=== PATIENT | male | born 1950 | race Caucasian/White ===

== ENCOUNTER 2023-11-14 08:14 | Outpatient (REF) | payer MEDICARE, OTHER, SELFPAY ==
[2023-11-14] VITALS (10 sets, daily range): BP systolic 80–136; BP diastolic 65–105
[2023-11-14 08:38] LABS: % Eosinophils 5.8 % (0-6); % Immature Granulocytes 0.2 % (0-0.5); % Lymphocytes 21.7 % (20.5-51.1); % Monocytes 9.9 % (1.7-9.3); % Neutrophils 61.4 % (42.2-75.2); Absolute Basophils 0.1 10^3/uL (0-0.2); Absolute Eosinophils 0.5 10^3/uL (0-0.7); Absolute Lymphocytes 1.8 10^3/uL (1.2-3.4); Absolute Monocytes 0.8 10^3/uL (0.1-0.6); Absolute Neutrophils 5.1 10^3/uL (1.4-6.5); Hematocrit 44.3 % (39.0-52.0); Hemoglobin 15.4 g/dL (13.0-18.0); Mean Corp Hgb Conc. 34.8 g/dL (33.0-37.0); Mean Corpuscular Volume 91.9 fL (80.0-94.0); Mean Platelet Volume 9.1 fL (7.4-10.4); Nucleated Red Blood Cells % 0 % (-); Platelet Count 258 10^3/uL (130-400); Red Blood Cell Count 4.82 10^6/uL (4.70-6.10); Red Cell Dist. Width 13.2 % (11.5-14.5); White Blood Cell Count 8.3 10^3/uL (4.8-10.8)
[2023-11-14 08:50] LABS: INR 1.03; PT 13.3 Sec (11.4-14.6)
[2023-11-14 08:52] LABS: Blood Urea Nitrogen 20 mg/dl (9-20); Calcium 9.2 mg/dl (8.4-10.2); Carbon Dioxide 24 mmol/L (22-30); Chloride 107 mmol/L (98-107); Glucose 111 mg/dl (70-99); Potassium 3.4 mmol/L (3.5-5.1); Sodium 138 mmol/L (135-145); eGFR 52.74
[2023-11-14] MEDS: CATAPRES 0.100000000000000006 MG PO (09:07)
== END 2023-11-14 12:25 | disposition home or self-care (01) ==
LOC: RADI 08:14
PROVIDERS: ATTENDING PHYSICIAN Urology
DX: C64.2 Malignant neoplasm of left kidney, except renal pelvis (principal); D68.8 Other specified coagulation defects
CPT/HCPCS: 88305; 36415; 50200; 76942; 80048; 85025; 85610; 88333; 88341; 88342; 99152; 99153

== ENCOUNTER 2024-01-05 06:27 | Inpatient (IN) | payer MEDICARE, OTHER, SELFPAY ==
[2023-12-28 14:03] VITALS: BMI 32.4
--- NOTE | 2023-12-30 16:21 | PTCARENOTE ---
K 3.4, ok if stable per Dr. Peters.
[2024-01-05] VITALS (14 sets, daily range): BP systolic 109–139; BP diastolic 65–111; BMI 32.4; BMI 31.0
[2024-01-05] MEDS: NORMOSOL-R 1000 IV (11:30)
[2024-01-05] MEDS: DILAUDID 0.5 MG IV (19:05)
[2024-01-05] MEDS: VALIUM INJECTION 2 MG IV (19:16)
[2024-01-05 19:38] LABS: Hematocrit 41.3 % (39.0-52.0); Hemoglobin 14.3 g/dL (13.0-18.0)
[2024-01-05 19:56] LABS: Blood Urea Nitrogen 20 mg/dl (9-20); Calcium 8.8 mg/dl (8.4-10.2); Carbon Dioxide 17 mmol/L (22-30); Chloride 105 mmol/L (98-107); Estimated Creatinine Clearance 44 ml/min; Glucose 152 mg/dl (70-99); Potassium 4.8 mmol/L (3.5-5.1); Sodium 135 mmol/L (135-145); eGFR 41.78
[2024-01-05] MEDS: NSS 1000 IV (20:19)
--- NOTE | 2024-01-05 20:40 | TRANSFER ---
Pt arrived to unit in bed from PACU Pt drowsey but AAOx3. VSS. On 2LNC at 94%. Pt admitted postop for L partial nephrectomy. 6 lap sites glued and open to air. Bed in lowest position and call allen within reach. Safety maintained.
[2024-01-05] MEDS: SENOKOT 8.59999999999999964 MG PO (21:48)
[2024-01-05] MEDS: ZYLOPRIM 100 MG PO (21:49)
[2024-01-05] MEDS: PROTONIX 40 MG PO (21:50)
[2024-01-05] MEDS: ZETIA 10 MG PO (21:50)
[2024-01-05] MEDS: NORVASC 10 MG PO (21:50)
[2024-01-06 03:15] VITALS: BP 130/76
[2024-01-06] MEDS: NSS 1000 IV (05:36)
[2024-01-06] MEDS: SYNTHROID 137 MCG PO (06:06)
[2024-01-06 06:22] LABS: % Basophils 0.2 % (0-2); % Immature Granulocytes 0.6 % (0-0.5); % Lymphocytes 5.9 % (20.5-51.1); % Monocytes 9.1 % (1.7-9.3); % Neutrophils 84.2 % (42.2-75.2); Absolute Immature Granulocytes 0.1 10^3/uL (0-0.05); Absolute Lymphocytes 0.6 10^3/uL (1.2-3.4); Absolute Neutrophils 9.2 10^3/uL (1.4-6.5); Hematocrit 38.6 % (39.0-52.0); Hemoglobin 12.9 g/dL (13.0-18.0); Mean Corp Hgb Conc. 33.4 g/dL (33.0-37.0); Mean Corpuscular Volume 92.8 fL (80.0-94.0); Mean Platelet Volume 9.5 fL (7.4-10.4); Nucleated Red Blood Cells % 0 % (-); Platelet Count 234 10^3/uL (130-400); Red Blood Cell Count 4.16 10^6/uL (4.70-6.10); Red Cell Dist. Width 13.2 % (11.5-14.5); White Blood Cell Count 10.9 10^3/uL (4.8-10.8)
[2024-01-06 06:40] LABS: Blood Urea Nitrogen 23 mg/dl (9-20); Calcium 8.4 mg/dl (8.4-10.2); Carbon Dioxide 20 mmol/L (22-30); Chloride 107 mmol/L (98-107); Estimated Creatinine Clearance 40 ml/min; Glucose 116 mg/dl (70-99); Potassium 4.4 mmol/L (3.5-5.1); Sodium 133 mmol/L (135-145); eGFR 36.56
[2024-01-06 07:40] VITALS: BP 149/79
--- NOTE | 2024-01-06 08:32 | W.PN.URO.CBU ---
Addendum entered and electronically signed by Ford Sauer MD 01/16/24 11:18:
Diagnosis:
papillary renal cell carcinoma
Addendum entered and electronically signed by Ford Sauer MD 01/09/24 12:24:
Patient has CKD3
Managed with trending renal function
CARMEN on CKD due to renal surgery
Original Note:
Today's Communication / Plan
-
Trend CBC
Inpt monitoring
Likely discharge 01/06
Assessment / Plan
-
73M s/p robotic L partial nephrectomy 01/04
- Regular diet
- Ambulate
- OOB to chair
- Anemia - expected HGB drop and likely dilutional. Trend CBC. Will remain inpatient for further care an additional 24hrs due to increased risk for bleeding with large tumor resection
- CKD - trend creatinine, some expected drop from baseline with resection and warm ischemia
Diagnosis
-
Date of Service: January 06, 2024
-
Patient Diagnosis:
L renal mass
CKD
Anemia
Post Op Day: s/p L robotic L partial nephrectomy 01/04
Subjective
-
No events overnight
Pain controlled
Tolerating clears
Objective
-
Vital Signs
Temp Pulse Resp BP Pulse Ox
98.1 F 83 18 149/79 93
01/06/24 07:40 01/06/24 07:40 01/06/24 07:40 01/06/24 07:40 01/06/24 07:40
Intake and Output
01/05/24 01/06/24 01/07/24
06:59 06:59 06:59
Intake Total 1780 / 1780
Output Total 625 / 625
Balance 1155 / 1155
Intake:
Oral fluids 480 / 480
IV fluids (Total) 1300 / 1300
Normosal 300 / 300
Output:
Urine, Pino 625 / 625
Laboratory Results
01/06/24 05:09
01/06/24 05:09
Physical Exam
-
General - well developed, well nourished, no acute distress
Chest - clear bilaterally
Abdomen - soft, approp tender
Pino in place, clear
Skin - warm & dry with no rash
Neuro - AOx3, no motor deficits
Extremities - no clubbing, no cyanosis, no edema
Incision - clean, dry
Dressing - clean, dry, intact
[2024-01-06] MEDS: LIPITOR 80 MG PO (09:01)
[2024-01-06] MEDS: SENOKOT 8.59999999999999964 MG PO ×2 (09:01→20:01)
[2024-01-06] MEDS: TOPROL XL 100 MG PO (09:02)
[2024-01-06] MEDS: LOW STRENGTH ASPIRIN 81 MG PO (09:02)
[2024-01-06] MEDS: PROTONIX 40 MG PO ×2 (09:02→20:01)
[2024-01-06] MEDS: TYLENOL 650 MG PO ×2 (09:06→16:45)
--- NOTE | 2024-01-06 11:04 | CM ---
Addendum entered by Karen Bautista RN 01/06/24 15:31:
IMM signed and place on chart.
Original Note:
Reviewed the chart notes and spoke with the patient at the bedside. The patient resides with his spouse in a one story home with one step to enter. The patient reports on DME/VN/SNF in the past. The patient confirmed his pharmacy of choice is the
[facility] [address] [place]. CM discussed VN services, patient declined. CM continues to be available to patient/family and is monitoring medical plan for needs at discharge.
Plan: Discharge to home when medically stable.
[2024-01-06 11:43] VITALS: BP 129/77
--- NOTE | 2024-01-06 13:02 | PN.CDI ---
CDI
- -
CDI:
Physician Documentation Request
Admit Date: 01/05/24 06:27
Dear Doctor Cristiane,
Please review the following and provide your response in the progress notes.
Clinical Indicators:
- 12/05 Urology Office note indicates pmh CKD without specificity
- Prior admission 09/24/22 Nephrology note indicates CKD 3
- Current admission:
Laboratory Tests
01/05/24 01/06/24
19:32 05:09
Creatinine 1.7 H 1.9 H
eGFR 41.78 36.56
Please clarify which of the following accurately represents the patient's renal status:
CKD 3b
CARMEN on CKD 3a
Other
Criteria for CARMEN*
1 Increase in serum creatinine by > or = to 0.3 mg/dL (> or = to 26.5 micromol/L) within 48 hours, OR
2 Increase in serum creatinine to > or = to 1.5 times baseline, which is known or presumed to have occurred within 7 days, OR
3 Urine volume < 0.5 nL/kg/hour for six hours
Stages of Chronic Kidney Disease*
Level Description GFR
G1 Normal or High >90
G2 Mildly decreased 60-89
G3a Mildly to moderately decreased 45-59
G3b Moderately to severely decreased 30-44
G4 Severely decreased 15-29
G5 Kidney failure <15
Use of terms such as suspected, likely, concern for, or probable (associated with a specific diagnosis that is being evaluated, monitored, or treated as if it exists) are acceptable and can be coded in the inpatient setting, when documented at the
time of discharge.
Thank you,
Melissa Puentes RN
CDI Specialist
Please use your independent medical judgment in providing your response.
*Source: Kidney Disease: Improving Global Outcomes (KDIGO) 2012
[2024-01-06 15:28] VITALS: BP 124/79
[2024-01-06 19:10] VITALS: BP 108/62
[2024-01-06] MEDS: NORVASC 10 MG PO (20:01)
[2024-01-06] MEDS: ZYLOPRIM 100 MG PO (20:01)
[2024-01-06] MEDS: ZETIA 10 MG PO (20:01)
[2024-01-06 23:20] VITALS: BP 119/58
[2024-01-07] MEDS: SYNTHROID 137 MCG PO (06:31)
[2024-01-07 07:05] LABS: % Basophils 0.5 % (0-2); % Eosinophils 1.5 % (0-6); % Immature Granulocytes 0.5 % (0-0.5); % Lymphocytes 9.3 % (20.5-51.1); % Monocytes 11.9 % (1.7-9.3); % Neutrophils 76.3 % (42.2-75.2); Absolute Basophils 0.1 10^3/uL (0-0.2); Absolute Eosinophils 0.2 10^3/uL (0-0.7); Absolute Immature Granulocytes 0.1 10^3/uL (0-0.05); Absolute Monocytes 1.3 10^3/uL (0.1-0.6); Absolute Neutrophils 8.4 10^3/uL (1.4-6.5); Hematocrit 34.7 % (39.0-52.0); Hemoglobin 11.8 g/dL (13.0-18.0); Mean Corpuscular Volume 91.1 fL (80.0-94.0); Mean Platelet Volume 9.2 fL (7.4-10.4); Nucleated Red Blood Cells % 0 % (-); Platelet Count 192 10^3/uL (130-400); Red Blood Cell Count 3.81 10^6/uL (4.70-6.10); Red Cell Dist. Width 13.3 % (11.5-14.5)
[2024-01-07 07:27] LABS: Blood Urea Nitrogen 28 mg/dl (9-20); Calcium 8.6 mg/dl (8.4-10.2); Carbon Dioxide 21 mmol/L (22-30); Chloride 109 mmol/L (98-107); Estimated Creatinine Clearance 36 ml/min; Glucose 122 mg/dl (70-99); Potassium 3.9 mmol/L (3.5-5.1); Sodium 136 mmol/L (135-145); eGFR 32.42
[2024-01-07 07:30] VITALS: BP 127/81
[2024-01-07] MEDS: LOW STRENGTH ASPIRIN 81 MG PO (08:39)
[2024-01-07] MEDS: SENOKOT 8.59999999999999964 MG PO (08:39)
[2024-01-07] MEDS: PROTONIX 40 MG PO (08:39)
[2024-01-07] MEDS: TOPROL XL 100 MG PO (08:39)
[2024-01-07] MEDS: LIPITOR 80 MG PO (08:39)
[2024-01-07] MEDS: TYLENOL 650 MG PO (08:40)
--- NOTE | 2024-01-07 09:24 | W.PN.URO.CBU ---
Today's Communication / Plan
-
D/c home
Assessment / Plan
-
73M s/p robotic L partial nephrectomy 01/04
- Post-op anemia - reasonable minimal Hgb drop, likely dilutional
- CKD - Cr rise expected from baseline with resection and warm ischemia
- D/c home today
- F/U in 1 week scheduled w/ Dr. Sauer
Diagnosis
-
Date of Service: January 07, 2024
-
Patient Diagnosis:
L renal mass
CKD
Anemia
Post Op Day: s/p L robotic L partial nephrectomy 01/04
Subjective
-
Tolerating diet.
Voiding w/o issues.
Pain minimal - taking Tylenol prn.
Objective
-
Vital Signs
Temp Pulse Resp BP Pulse Ox
98.5 F 90 18 127/81 95
01/07/24 07:30 01/07/24 07:30 01/07/24 07:30 01/07/24 07:30 01/07/24 07:30
Intake and Output
01/06/24 01/07/24 01/08/24
06:59 06:59 06:59
Intake Total 1780 / 1780 1460 / 1460
Output Total 625 / 625 1830 / 1830
Balance 1155 / 1155 -370 / -370
Intake:
Oral fluids 480 / 480 660 / 660
IV fluids (Total) 1300 / 1300 800 / 800
Normosal 300 / 300
Output:
Urine, Pino 625 / 625 400 / 400
Urine, Voided 1430 / 1430
Other:
Number of approximated MODERATE 1
amounts of urine
Laboratory Results
01/07/24 06:36
01/07/24 06:36
Physical Exam
-
General - well developed, well nourished, no acute distress
Abdomen - soft, non-tender, no CVAT, no incisional pain or distention
Genitalia - normal
Skin - warm & dry with no rash
Neuro - AOx3, no motor deficits
Extremities - no clubbing, no cyanosis, no edema
Incision - clean, dry
Care Review
Data Reviewed
Discussed with: Nursing
Total Time Spent with Patient (in minutes): 35
--- NOTE | 2024-01-07 09:28 | W.DS.TRANS ---
DC Summary - Sales Representative Trainee
-
Discharge Instructions:
Sleep Apnea Risk Intermediate
Discharge Diagnosis/Procedures Left renal mass
Diet No restrictions
Activity No strenuous activity
Additional Activity avoid lifting >15 pounds or straining for 4
weeks
Driving Restrictions As prior to admission
Bathing Restrictions OK to Shower
Wound Care gently rinse incisions in the shower. Don't
scrub or pick off glue
Instructions:
Stand-Alone Forms:
Changes to Home Medications: No
Discharge Medications:
DC Medications w/original date entered in [employer]
esomeprazole magnesium 20 mg capsule,delayed release (Nexium 24HR) 20 mg PO BID Gastrointestinal issue 07/15/20
amlodipine 10 mg tablet (Norvasc) 10 mg PO HS ##0 03/05/22
allopurinol 100 mg tablet 100 mg PO HS Gout 09/22/22
ezetimibe 10 mg tablet 10 mg PO HS High Cholesterol 09/22/22
sertraline 25 mg tablet 25 mg PO PRN PRN anxiety 09/22/22
metoprolol succinate 100 mg tablet,extended release 24 hr 100 mg PO DAILY 90 days #90 tabs 09/24/22
nitroglycerin 0.4 mg sublingual tablet 0.4 mg sublingual Q5M PRN chest pain #25 tabs 09/24/22
acetaminophen 500 mg tablet 500 mg PO Q6H PRN pain 12/30/23
atorvastatin 80 mg tablet 80 mg PO DAILY High Cholesterol 12/30/23
cetirizine 10 mg tablet 10 mg PO DAILY PRN allergies 12/30/23
cholecalciferol (vitamin D3) 50 mcg (2,000 unit) capsule (Vitamin D3) 50 mcg PO DAILY Supplement 12/30/23
levothyroxine 137 mcg tablet 137 mcg PO MOTUWETHFRSA Thyroid 12/30/23
levothyroxine 137 mcg tablet 274 mcg PO QUIROZ Thyroid 12/30/23
magnesium 500 mg tablet 15 mg PO DAILY Electrolyte Repletion 12/30/23
prednisone 10 mg tablet 30 mg PO PRN PRN gout 12/30/23
oxycodone-acetaminophen 5 mg-325 mg tablet 1 tab PO Q4HPRN PRN mild pain #20 tabs 01/06/24
Home Medication Changes
Pending Results: No
Total time spent discharging patient (in min): 35
--- NOTE | 2024-01-07 10:27 | CM ---
CM reviewed chart and noted dc order
Bedside meeting with pt
No needs identified, spouse will transport
Discharge Disposition- home, no needs- spouse transport
[2024-01-07 11:40] VITALS: BP 126/75
--- NOTE | 2024-01-16 06:47 | PN.CDI ---
CDI
- -
CDI:
Physician Documentation Request
Admit Date: 01/05/24 06:27
Dear Doctor Cristiane,
Please review the following and provide your response in the progress notes.
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
Coding guidelines state that a electrical panel builder cannot report a diagnosis from a pathology report without physician confirmation of the diagnosis.
Based on the above, could you clarify in the progress notes, the appropriate diagnosis, if significant, that supports the above abnormalities and additional evaluation, monitoring and/or treatment rendered:
Papillary renal cell carcinoma is confirmed and clinically relevant to the admission.
Papillary renal cell carcinoma is not confirmed and not clinically relevant to the admission.
Other
Unable to determine
Use of terms such as suspected, likely, concern for, or probable (associated with a specific diagnosis that is being evaluated, monitored, or treated as if it exists) are acceptable and can be coded in the inpatient setting, when documented at the
time of discharge.
Thank you,
Greta Crespo
Contribution Solicitor
Please use your independent medical judgment in providing your response.
== END 2024-01-07 13:09 | disposition home or self-care (01) | DRG 657 ==
LOC: 2 SOUTH 06:27
PROVIDERS: ADMITTING PHYSICIAN Urology; FAMILY PHYSICIAN Family Medicine
PROC: 0TB14ZZ Excision of Left Kidney, Percutaneous Endoscopic Approach (ICD-10-PCS; 2024-01-05)
PROC: 8E0W4CZ Robotic Assisted Procedure of Trunk Region, Percutaneous Endoscopic Approach (ICD-10-PCS; 2024-01-05)
DX: C64.2 Malignant neoplasm of left kidney, except renal pelvis (principal); N17.9 Acute kidney failure, unspecified; N18.30 Chronic kidney disease, stage 3 unspecified; N28.1 Cyst of kidney, acquired; D64.9 Anemia, unspecified
CPT/HCPCS: 88304; 88307; 36415; 80048; 85014; 85018; 85025; 86850; 86900; 86901; 86920; 88341; 88342; C1729

== ENCOUNTER → 2024-07-18 12:52 | Outpatient (REF) | payer MEDICARE, OTHER, SELFPAY | LOC: HWRAD 12:52 | PROVIDERS: ATTENDING PHYSICIAN Urology; FAMILY PHYSICIAN Family Medicine | DX: Q55.22 Retractile testis (principal); N50.812 Left testicular pain | CPT/HCPCS: 71260; 74170; Q9967 ==

== ENCOUNTER → 2024-11-15 11:22 | Outpatient (REF) | payer MEDICARE, OTHER, SELFPAY | LOC: RAD 11:22 | PROVIDERS: ATTENDING PHYSICIAN Family Medicine; FAMILY PHYSICIAN Family Medicine | DX: R05.9 Cough, unspecified (principal) | CPT/HCPCS: 71046 ==

== ENCOUNTER → 2025-02-27 07:30 | Outpatient (REF) | payer MEDICARE, OTHER, SELFPAY | LOC: HWRCS 07:30 | PROVIDERS: ATTENDING PHYSICIAN Internal Medicine Interventional Cardiology; FAMILY PHYSICIAN Family Medicine | DX: I10 Essential (primary) hypertension (principal); R06.09 Other forms of dyspnea | CPT/HCPCS: 78452; 93017; A9500; J2785 ==

== ENCOUNTER → 2025-03-05 12:46 | Outpatient (REF) | payer MEDICARE, OTHER, SELFPAY | LOC: HWRCS 12:46 | PROVIDERS: ATTENDING PHYSICIAN Internal Medicine Interventional Cardiology; FAMILY PHYSICIAN Family Medicine | DX: I10 Essential (primary) hypertension (principal); R06.09 Other forms of dyspnea | CPT/HCPCS: 93306 ==

== ENCOUNTER 2025-04-02 06:27 | Day surgery (SDC) | payer MEDICARE, OTHER, SELFPAY | END 2025-04-02 10:45 | disposition home or self-care (01) | LOC: GI 06:27 | PROVIDERS: ATTENDING PHYSICIAN Student in an Organized Health Care Education/Training Program; FAMILY PHYSICIAN Family Medicine | DX: Z12.11 Encounter for screening for malignant neoplasm of colon (principal); D12.0 Benign neoplasm of cecum; D12.2 Benign neoplasm of ascending colon; D12.3 Benign neoplasm of transverse colon; D12.4 Benign neoplasm of descending colon; K57.30 Diverticulosis of large intestine without perforation or abscess without bleeding; K62.1 Rectal polyp; R12 Heartburn; K22.70 Barrett's esophagus without dysplasia; K22.89 Other specified disease of esophagus; K44.9 Diaphragmatic hernia without obstruction or gangrene; K31.89 Other diseases of stomach and duodenum; Z86.0100 Personal history of colon polyps, unspecified; Z13.810 Encounter for screening for upper gastrointestinal disorder | CPT/HCPCS: 45385; 43239; 88305; 88342 ==

== ENCOUNTER 2025-08-07 06:24 | Day surgery (SDC) | payer MEDICARE, OTHER, SELFPAY | END 2025-08-07 13:24 | disposition home or self-care (01) | LOC: GI 06:24 | PROVIDERS: ATTENDING PHYSICIAN Student in an Organized Health Care Education/Training Program | DX: Z12.11 Encounter for screening for malignant neoplasm of colon (principal); D12.2 Benign neoplasm of ascending colon; D12.3 Benign neoplasm of transverse colon; K57.30 Diverticulosis of large intestine without perforation or abscess without bleeding; Z98.890 Other specified postprocedural states; Z86.0101 Personal history of adenomatous and serrated colon polyps | CPT/HCPCS: 45385; 45380; 88305 ==